=== PATIENT | female | born 2005 | race Caucasian/White ===

== ENCOUNTER 2024-11-21 20:53 | Emergency (ER) | payer SELFPAY ==
[~2024-11-21] VITALS: Ht 177.8 cm; Wt 71.2 kg
[2024-11-21 20:58] VITALS: PULSE 90; RESP 16; TEMP 98.5
[2024-11-21 21:47] VITALS: BP 142/88; PULSE 90; RESP 16; TEMP 98.5; O2SAT 99
== END 2024-11-21 22:05 | disposition home or self-care (01) ==
LOC: FSED 20:59
DX: K62.5 Hemorrhage of anus and rectum (principal); K60.2 Anal fissure, unspecified
CPT/HCPCS: 99283